=== PATIENT | male | born 1995 | race Caucasian/White ===

== ENCOUNTER 2016-11-15 13:04 | Emergency (ER) | payer OTHER ==
[~2016-11-15 13:04] MED LIST: ALKA-SELTZER125 MG PO; AUGMENTIN875 M1 PO; AURALGAN OTIC S10 M1 AD; FLONASE 0.05% N16 G1; HYDROCODON-ACE1 EAC9 PO; IBUPROFEN800 MG PO; LORTAB 5/500 TA1 TA1 PO; PHENERGAN25 M1 PO; PRILOSEC20 M1 PO; ZITHROMAX PO
== END 2016-11-15 13:12 | disposition home or self-care (01) ==
LOC: CED 13:04
DX: H66.92 Otitis media, unspecified, left ear (principal)
CPT/HCPCS: 96372; 99283; J1885

== ENCOUNTER 2016-12-18 10:24 | Emergency (ER) | payer OTHER ==
--- NOTE | ~2016-12-18 | CR2 ---
[facility] A Service of [facility] RADIOLOGY TEXT RESULTS PATIENT: VINCENT SCOTT LOCATION: [facility] : [birth year] UNIT #: [id number] AGE: [address]: Cody Bey MD SEX: M ORDER DR: [id number] [facility] [address] [facility] [place], [place] [address] [id number] MR#: [id number] #: [id number] NAME: VINCENT SCOTT : 1995 SEX: M STUDY DATE/TIME: 12/18/2016 9:29 UNIT: [facility] ROOM: STUDY DESCRIPTION: CR Abdomen Acute Series Attending Physician: Cody Bey M.D. Ordering Physician: Cody Bey M.D. Primary Care Physician: No Primary Care Physician MEDICAL IMAGING REPORT This report is preliminary unless electronic signature is present EXAM Acute abdominal series. INDICATION Nausea, vomiting, and abdominal pain today. PROCEDURE Frontal view chest, supine and upright views of the abdomen and pelvis. COMPARISON None. FINDINGS Heart size normal. Lungs are clear. No free air. Previous cholecystectomy. Nonobstructed bowel gas pattern. IMPRESSION No acute findings. Dictated by... Cristopher Norton M.D. THIS IS AN ELECTRONICALLY VERIFIED REPORT Cristopher Norton M.D. at 12/19/2016 6:50 AM RAJAT/bertin TD: 12/18/2016 11:54 JOB #: [id number] MEDICAL IMAGING REPORT Page 1 of 1 COPY
[2016-12-18 09:37] LABS: BASOPHIL% 0.2 % (0-2.5); EOSINOPHIL# 0.1 X10e3 (0-0.7); EOSINOPHIL% 0.6 % (0.0-7.0); HEMATOCRIT 46.4 % (38.0-50.0); HEMOGLOBIN 15.7 gm/dL (13.0-16.0); LYMPHOCYTE# 0.8 X10e3 (1.0-3.5); LYMPHOCYTE% 8.5 % (17.0-45.0); MEAN CELL VOLUME 82.4 FL (83-96); MEAN CORPUSCULAR HEMOGLOBIN 27.9 PG (28-34); MEAN CORPUSCULAR HGB CONC 33.8 g/dL (30-36); MEAN PLATELET VOLUME 8.7 FL (6.5-11.5); MONOCYTE# 0.7 X10e3 (0-1.0); MONOCYTE% 6.9 % (3.0-12.0); NEUTROPHIL# 8.3 X10e3 (1.5-7.1); NEUTROPHIL% 83.8 % (40-75); PLATELET COUNT 244 X10e3 (140-420); RED BLOOD COUNT 5.63 X10e (3.90-5.60); RED CELL DISTRIBUTION WIDTH 12.9 % (11.0-15.5); WHITE BLOOD COUNT 9.9 X10e3 (4.0-10.5)
[2016-12-18 09:41] LABS: DIFF IND NO
[2016-12-18 10:08] LABS: ALBUMIN SERUM 4.8 g/dL (3.5-5.0); BILIRUBIN, DIRECT 0.2 mg/dL (0.0-0.2); BILIRUBIN,INDIRECT 1.3 mg/dL (0.0-0.9); BILIRUBIN,TOTAL 1.5 mg/dL (0.2-2.0); BUN/CREATININE RATIO 17.77; CALCIUM SERUM 9.5 mg/dL (8.4-10.2); CREATININE SERUM 0.9 mg/dL (0.6-1.4); GLOM FILT RATE Estimated 120.8 mL/min (>60); POTASSIUM 3.5 mmol/L (3.5-5.1); PROTEIN TOTAL SERUM 8.1 g/dL (6.0-8.3)
== END 2016-12-18 11:51 | disposition home or self-care (01) ==
LOC: CED 10:24
PROVIDERS: Emergency Medicine
DX: R11.10 Vomiting, unspecified (principal); F41.9 Anxiety disorder, unspecified; Z90.49 Acquired absence of other specified parts of digestive tract
CPT/HCPCS: 36415; 74022; 80048; 80076; 83690; 85025; 96361; 96374; 99284; J2550

== ENCOUNTER 2017-03-11 06:58 | Emergency (ER) | payer OTHER ==
[2017-03-11 08:12] LABS: BASOPHIL% 0.3 % (0-2.5); EOSINOPHIL# 0.1 X10e3 (0-0.7); EOSINOPHIL% 1.3 % (0.0-7.0); HEMATOCRIT 48.8 % (38.0-50.0); HEMOGLOBIN 16.2 gm/dL (13.0-16.0); LYMPHOCYTE# 3.8 X10e3 (1.0-3.5); LYMPHOCYTE% 34.9 % (17.0-45.0); MEAN CELL VOLUME 84.9 FL (83-96); MEAN CORPUSCULAR HEMOGLOBIN 28.1 PG (28-34); MEAN CORPUSCULAR HGB CONC 33.1 g/dL (30-36); MEAN PLATELET VOLUME 8.7 FL (6.5-11.5); MONOCYTE% 8.8 % (3.0-12.0); NEUTROPHIL# 5.9 X10e3 (1.5-7.1); NEUTROPHIL% 54.7 % (40-75); PLATELET COUNT 341 X10e3 (140-420); RED BLOOD COUNT 5.75 X10e (3.90-5.60); RED CELL DISTRIBUTION WIDTH 13.4 % (11.0-15.5); WHITE BLOOD COUNT 10.9 X10e3 (4.0-10.5)
[2017-03-11 08:14] LABS: DIFF IND NO
[2017-03-11 08:50] LABS: ALBUMIN SERUM 4.9 g/dL (3.5-5.0); BILIRUBIN, DIRECT 0.1 mg/dL (0.0-0.2); BILIRUBIN,INDIRECT 0.9 mg/dL (0.0-0.9); GLOM FILT RATE Estimated 106.4 mL/min (>60); POTASSIUM 3.6 mmol/L (3.5-5.1); PROTEIN TOTAL SERUM 8.4 g/dL (6.0-8.3)
== END 2017-03-11 09:53 | disposition home or self-care (01) ==
LOC: CED 06:58
PROVIDERS: Emergency Medicine
DX: R11.2 Nausea with vomiting, unspecified (principal); I10 Essential (primary) hypertension; Z90.49 Acquired absence of other specified parts of digestive tract; Z98.890 Other specified postprocedural states
CPT/HCPCS: 36415; 80048; 80076; 83690; 85025; 96361; 96374; 96375; 99284; J2060; J2550